=== PATIENT | female | born 1990 | race Caucasian/White ===

== ENCOUNTER 2019-07-25 01:31 | Emergency (ER) | payer OTHER ==
[~2019-07-25] VITALS: Ht 149.9 cm; Wt 136.0 kg
[2019-07-25 02:11] LABS: HEMATOCRIT. 40.5 % (36.0-48.0); HEMOGLOBIN. 13.9 g/dL (12.0-16.0); MEAN CORPUSCULAR HEMOGLOBIN 31.4 pg (28.0-32.0); MEAN CORPUSCULAR VOLUME 91.6 fL (81.0-99.0); MEAN PLATELET VOLUME 8.6 fl (7.4-10.4); PLATELET 345 x1000/uL (130-400); RED BLOOD CELL COUNT 4.42 mill/uL (4.2-5.4); RED CELL DISTRIBUTION WIDTH 14.4 % (11.6-14.6)
[2019-07-25 02:13] LABS: CHLORIDE 103 mEq/L (98-107)
[2019-07-25] MEDS ORDERED: ACETAMINOPHEN 325MG TABLET PO ONE (02:15)
[2019-07-25 02:38] LABS: B-HCG QUANTITATIVE 4278 mIU/mL (<3)
[2019-07-25 02:42] LABS: PLATELET ESTIMATE NORMAL
[2019-07-25 03:12] LABS: CLARITY URINE CLOUDY (CLEAR); COLOR URINE RED (YELLOW); KETONES URINE NEGATIVE (NEGATIVE); LEUKOCYTE ESTERASE URINE 1+ (NEGATIVE); NITRITE URINE NEGATIVE (NEGATIVE); OCCULT BLOOD URINE 3+ (NEGATIVE); PH URINE 5.5 (4.5-8.0); PROTEIN URINE 2+ (NEGATIVE); SPECIFIC GRAVITY URINE 1.021 (1.005-1.030); UROBILINOGEN URINE 0.2 E.U./dL (0.2-1.0)
[2019-07-25 03:30] VITALS: BP 121/52
== END 2019-07-25 04:30 | disposition home or self-care (01) ==
LOC: ER 01:31
DX: O03.9 Complete or unspecified spontaneous abortion without complication (principal); O26.899 Other specified pregnancy related conditions, unspecified trimester; E66.01 Morbid (severe) obesity due to excess calories; Z98.890 Other specified postprocedural states; Z3A.00 Weeks of gestation of pregnancy not specified
CPT/HCPCS: 36415; 76801; 80053; 81003; 84702; 85025; 86850; 86900; 99284

== ENCOUNTER 2019-07-27 10:32 | Emergency (ER) | payer OTHER ==
[~2019-07-27] VITALS: Ht 160 cm; Wt 126.0 kg
[2019-07-27] MEDS ORDERED: BACITRACIN ZINC OINT UDPKT TOP ONE (13:15)
[2019-07-27 15:15] VITALS: BP 163/94
== END 2019-07-27 15:16 | disposition home or self-care (01) ==
LOC: ER 10:32
DX: O03.9 Complete or unspecified spontaneous abortion without complication (principal); Z98.890 Other specified postprocedural states
CPT/HCPCS: 36415; 76830; 76856; 84702; 99284

== ENCOUNTER 2020-04-17 18:46 | Emergency (ER) | payer OTHER ==
[~2020-04-17] VITALS: Ht 154.9 cm; Wt 131.0 kg
[2020-04-17] MEDS ORDERED: ONDANSETRON HCL 4MG/2ML INJ IV ONE (20:45)
[2020-04-17] MEDS ORDERED: SODIUM CHLORIDE 0.9% 1,000 ML IV ONE (20:45)
[2020-04-17 20:50] LABS: CLARITY URINE CLEAR (CLEAR); COLOR URINE YELLOW (YELLOW); KETONES URINE 1+ (NEGATIVE); LEUKOCYTE ESTERASE URINE NEGATIVE (NEGATIVE); NITRITE URINE NEGATIVE (NEGATIVE); OCCULT BLOOD URINE NEGATIVE (NEGATIVE); PH URINE 6.5 (4.5-8.0); PROTEIN URINE NEGATIVE (NEGATIVE); UROBILINOGEN URINE 0.2 E.U./dL (0.2-1.0)
[2020-04-17 20:58] LABS: EOSINOPHILS % 1.3 % (0.0-5.0); HEMATOCRIT. 41.8 % (36.0-48.0); HEMOGLOBIN. 13.8 g/dL (12.0-16.0); LYMPHOCYTES % 27.8 % (20.0-50.0); MEAN CORPUSCULAR HEMOGLOBIN 30.2 pg (28.0-32.0); MEAN CORPUSCULAR VOLUME 91.6 fL (81.0-99.0); MEAN PLATELET VOLUME 8.6 fl (7.4-10.4); MONOCYTES % 7.1 % (2.0-8.0); NEUTROPHILS % 62.8 % (40.0-76.0); PLATELET 350 x1000/uL (130-400); RED BLOOD CELL COUNT 4.56 mill/uL (4.2-5.4)
[2020-04-17 21:04] LABS: CHLORIDE 103 mEq/L (98-107)
[2020-04-17 21:28] LABS: B-HCG QUANTITATIVE 22395 mIU/mL (<3)
[2020-04-17 22:51] VITALS: BP 144/80
== END 2020-04-17 22:53 | disposition home or self-care (01) ==
LOC: ER 18:46
DX: O20.0 Threatened abortion (principal); O21.0 Mild hyperemesis gravidarum; Z3A.01 Less than 8 weeks gestation of pregnancy; Z98.890 Other specified postprocedural states
CPT/HCPCS: 36415; 76801; 76817; 80053; 81003; 83690; 84702; 85025; 86850; 86900; 86901; 93005; 96361; 96374; 99285; J2405; J7030

== ENCOUNTER 2020-07-24 12:48 | Observation (INO) | payer OTHER | END 2020-07-24 15:45 | disposition home or self-care (01) | LOC: 8EST NSY 12:48 → 8 EST A/PP 13:50 | PROVIDERS: ADMIT Obstetrics & Gynecology; ATTEND Obstetrics & Gynecology | DX: Z34.92 Encounter for supervision of normal pregnancy, unspecified, second trimester (principal); Z3A.21 21 weeks gestation of pregnancy | CPT/HCPCS: 59025; 76805; 99281; G0378 ==

== ENCOUNTER 2020-08-18 17:37 | Observation (INO) | payer MEDICAID, OTHER ==
[~2020-08-18] VITALS: Ht 162.6 cm; Wt 123.0 kg
[2020-08-18] MEDS ORDERED: DEXAMETHASONE 10 MG/ML VIAL IV ONE (18:15)
[2020-08-18] MEDS ORDERED: KETOROLAC 60MG/2ML VIAL IM ONE (18:15)
[2020-08-18] MEDS ORDERED: LIDOCAINE 5% PATCH TOP SCH (18:15)
[2020-08-18] MEDS ORDERED: ACETAMINOPHEN 325MG TABLET PO ONE ×2 (18:15→19:00)
[2020-08-18 19:34] LABS: BASOPHILS % 0.4 % (0.0-2.0); EOSINOPHILS % 0.6 % (0.0-5.0); HEMATOCRIT. 37.3 % (36.0-48.0); HEMOGLOBIN. 12.8 g/dL (12.0-16.0); LYMPHOCYTES % 17.8 % (20.0-50.0); MEAN CORPUSCULAR HEMOGLOBIN 30.8 pg (28.0-32.0); MEAN CORPUSCULAR VOLUME 89.9 fL (81.0-99.0); MEAN PLATELET VOLUME 8.5 fl (7.4-10.4); MONOCYTES % 7.1 % (2.0-8.0); NEUTROPHILS % 74.1 % (40.0-76.0); PLATELET 359 x1000/uL (130-400); RED BLOOD CELL COUNT 4.15 mill/uL (4.2-5.4); RED CELL DISTRIBUTION WIDTH 14.8 % (11.6-14.6)
[2020-08-18 19:40] LABS: CHLORIDE 110 mEq/L (98-107)
[2020-08-18] MEDS ORDERED: POTASSIUM CHLORIDE 20MEQ TABLET SR PO SCH (20:00)
[2020-08-18 20:04] LABS: B-HCG QUANTITATIVE 10356 mIU/mL (<3)
[2020-08-18] MEDS ORDERED: ACET-2708 MT (21:30)
[2020-08-18] MEDS ORDERED: LIDO700A15 TP (21:30)
[2020-08-18 22:15] VITALS: BP 142/70
[2020-08-18] MEDS ORDERED: ONDA4TAB5 PO (23:02)
[2020-08-18] MEDS ORDERED: PREN1TAB78 PO (23:02)
[2020-08-18] MEDS ORDERED: LABETALOL (23:02)
== END 2020-08-18 23:45 | disposition home or self-care (01) ==
LOC: ER 17:37 → 8 EST LDRP 22:21
PROVIDERS: ADMIT Obstetrics & Gynecology; ATTEND Obstetrics & Gynecology
DX: O99.891 Other specified diseases and conditions complicating pregnancy (principal); M54.5 Low back pain; O16.2 Unspecified maternal hypertension, second trimester; O99.212 Obesity complicating pregnancy, second trimester; Z3A.24 24 weeks gestation of pregnancy
CPT/HCPCS: 36415; 59025; 76805; 80053; 84702; 85025; 86850; 86900; 86901; 99284; G0378; J1100; J1885; 99281

== ENCOUNTER 2020-11-10 16:53 | Inpatient (IN) | payer MEDICAID, OTHER ==
[~2020-11-10] VITALS: Ht 149.9 cm; Wt 137.9 kg
[~2020-11-10 16:53] MED LIST: ACET-2708 MT; LABETALOL; LIDO700A15 TP; ONDA4TAB5 PO; PREN1TAB78 PO
[2020-11-10] MEDS ORDERED: NALOXONE HCL 0.4 MG/ML 1ML VIAL IM PRN (18:15)
[2020-11-10] MEDS ORDERED: DEXT 5%/LR + PITOCIN 20UNITS/L 1,000 ML IV SCH (18:15)
[2020-11-10] MEDS ORDERED: LACTATED RINGERS 1,000 ML IV SCH (18:15)
[2020-11-10] MEDS ORDERED: CITRIC ACID/SODIUM CITRATE SOLN 30ML UDC PO NR (18:45)
[2020-11-10 19:20] LABS: BASOPHILS % 0.2 % (0.0-2.0); EOSINOPHILS % 0.9 % (0.0-5.0); HEMATOCRIT. 39.1 % (36.0-48.0); LYMPHOCYTES % 23.4 % (20.0-50.0); MEAN CORPUSCULAR HEMOGLOBIN 30.4 pg (28.0-32.0); MEAN CORPUSCULAR VOLUME 91.8 fL (81.0-99.0); MEAN PLATELET VOLUME 8.8 fl (7.4-10.4); MONOCYTES % 8.5 % (2.0-8.0); PLATELET 389 x1000/uL (130-400); RED BLOOD CELL COUNT 4.26 mill/uL (4.2-5.4); RED CELL DISTRIBUTION WIDTH 14.7 % (11.6-14.6)
[2020-11-10 19:24] LABS: CHLORIDE 106 mEq/L (98-107)
[2020-11-10 19:34] LABS: CLARITY URINE CLEAR (CLEAR); COLOR URINE YELLOW (YELLOW); KETONES URINE 2+ (NEGATIVE); LEUKOCYTE ESTERASE URINE NEGATIVE (NEGATIVE); NITRITE URINE NEGATIVE (NEGATIVE); OCCULT BLOOD URINE NEGATIVE (NEGATIVE); PROTEIN URINE TRACE (NEGATIVE); SPECIFIC GRAVITY URINE 1.026 (1.005-1.030)
[2020-11-10 19:44] LABS: *AMPHETAMINES SCREEN URINE NEGATIVE (NEGATIVE); *BARBITURATES SCREEN URINE NEGATIVE (NEGATIVE); *BENZODIAZEPINES SCREEN URINE NEGATIVE (NEGATIVE); *COCAINE SCREEN URINE NEGATIVE (NEGATIVE); METHADONE URINE SCREEN NEGATIVE (NEGATIVE); OPIATES URINE SCREEN NEGATIVE (NEGATIVE)
[2020-11-10 19:45] LABS: PHENCYCLIDINE URINE SCREEN NEGATIVE (NEGATIVE)
[2020-11-10] MEDS ORDERED: FENTANYL CITRATE/PF 50MCG/ML 2ML VIAL ONE (19:45)
[2020-11-10] MEDS ORDERED: PHENYLEPHRINE HCL 10 MG/ML 1ML (IV VIAL) IV ONE (19:45)
[2020-11-10] MEDS ORDERED: OXYTOCIN 10 UNITS/ML 1ML ONE (19:46)
[2020-11-10] MEDS ORDERED: EPHEDRINE SULFATE 50MG/ML VIAL ONE (19:46)
[2020-11-10] MEDS ORDERED: CEFAZOLIN SODIUM 1000MG/VIAL ONE (19:46)
[2020-11-10] MEDS ORDERED: ONDANSETRON HCL 4MG/2ML INJ ONE (19:46)
[2020-11-10] MEDS ORDERED: MORPHINE SULFATE/PF 1MG/ML 10ML AMP ONE (19:46)
[2020-11-10] MEDS ORDERED: SODIUM CHLORIDE 0.9% 10ML VIAL ONE (19:48)
[2020-11-10 19:51] LABS: CANNABINOID URINE SCREEN PRESUMTIVE POSITIVE (NEGATIVE)
[2020-11-10 20:05] LABS: HEPATITIS B SURFACE ANTIGEN NEGATIVE
[2020-11-10 20:08] LABS: PARTIAL THROMBOPLASTIN TIME 25.3 sec (23.4-31.0); PROTHROMBIN TIME 10.6 sec (9.6-11.0)
[2020-11-10] MEDS ORDERED: DIPHENHYDRAMINE 50MG/ML VIAL ONE (23:55)
[2020-11-10] MEDS ORDERED: KETOROLAC 60MG/2ML VIAL IM ONE (23:55)
[2020-11-11] VITALS (8 sets, daily range): BP systolic 109–145; BP diastolic 56–93
[2020-11-11] MEDS ORDERED: ACETAMINOPHEN WITH CODEINE 300/30MG TABLET PO PRN (00:15)
[2020-11-11] MEDS ORDERED: BISACODYL 10MG SUPP PR PRN (00:15)
[2020-11-11] MEDS ORDERED: BUTORPHANOL TARTRATE 2 MG/ML VIAL IV PRN (00:15)
[2020-11-11] MEDS ORDERED: DIPHENHYDRAMINE 25MG CAPSULE PO PRN (00:15)
[2020-11-11] MEDS ORDERED: KETOROLAC 30MG/ML VIAL IV SCH (00:15)
[2020-11-11] MEDS ORDERED: BENZOCAINE/LANOLIN/ALOE VERA SPRAY TOP PRN (00:15)
[2020-11-11] MEDS ORDERED: HEMORRHOIDAL SUPP PR PRN (00:15)
[2020-11-11] MEDS ORDERED: NALOXONE HCL 0.4 MG/ML 1ML VIAL IV PRN (00:15)
[2020-11-11] MEDS ORDERED: DIPHENHYDRAMINE 50MG/ML VIAL IV PRN (00:15)
[2020-11-11] MEDS ORDERED: IBUPROFEN 400MG TABLET PO PRN (00:15)
[2020-11-11] MEDS ORDERED: GLYCERIN/WITCH HAZEL LEAF MEDICATED PAD TOP PRN (00:15)
[2020-11-11] MEDS ORDERED: DEXT 5%/LR + PITOCIN 20UNITS/L 1,000 ML IV SCH (02:30)
[2020-11-11 07:17] LABS: BASOPHILS % 0.3 % (0.0-2.0); EOSINOPHILS % 0.3 % (0.0-5.0); HEMATOCRIT. 37.4 % (36.0-48.0); HEMOGLOBIN. 12.4 g/dL (12.0-16.0); MEAN CORPUSCULAR HEMOGLOBIN 30.7 pg (28.0-32.0); MEAN CORPUSCULAR VOLUME 92.5 fL (81.0-99.0); MEAN PLATELET VOLUME 8.7 fl (7.4-10.4); MONOCYTES % 7.8 % (2.0-8.0); NEUTROPHILS % 75.6 % (40.0-76.0); PLATELET 324 x1000/uL (130-400); RED BLOOD CELL COUNT 4.04 mill/uL (4.2-5.4); RED CELL DISTRIBUTION WIDTH 15.1 % (11.6-14.6)
[2020-11-11] MEDS ORDERED: MAGNESIUM/ALUMINUM HYDROXIDE/SIMETHICONE 30ML UDC PO SCH (07:30)
[2020-11-11] MEDS ORDERED: TETANUS, DIPHTHERIA, PERTUSSIS VAC/PF 0.5ML (>7YR OLD) IM ONE (09:00)
[2020-11-11] MEDS ORDERED: PRENATAL VIT/FE FUMARATE/FA TABLET PO SCH (09:00)
[2020-11-11] MEDS ORDERED: ONDANSETRON HCL 4MG/2ML INJ IV PRN (10:00)
[2020-11-11] MEDS: SIMETHICONE 80MG TABLET CHEW PO SCH ×2 (15:55→21:39)
[2020-11-11] MEDS: IBUPROFEN 800MG TABLET PO PRN (15:55)
[2020-11-11] MEDS ORDERED: DOCUSATE SODIUM 100MG CAPSULE PO SCH (21:00)
[2020-11-11] MEDS ORDERED: LABETALOL HCL 200MG TABLET PO SCH (22:00)
[2020-11-12 00:05] VITALS: BP 116/70
[2020-11-12] MEDS: IBUPROFEN 800MG TABLET PO PRN ×2 (00:22→12:11)
[2020-11-12 04:00] VITALS: BP 122/79
[2020-11-12 05:30] VITALS: BP 125/54
[2020-11-12] MEDS ORDERED: IBUP-2030 PO (06:04)
[2020-11-12] MEDS ORDERED: FERROUS SULFATE 325MG TABLET PO SCH (07:30)
[2020-11-12 08:00] VITALS: BP 96/49
[2020-11-12] MEDS: SIMETHICONE 80MG TABLET CHEW PO SCH (12:12)
[2020-11-12 16:12] VITALS: BP 136/66
[2020-11-22 04:09] LABS: CANNABINOID CONFIRMATION URINE Positive (.)
== END 2020-11-12 19:25 | disposition home or self-care (01) | DRG 540 ==
LOC: 8 EST LDRP 16:53 → OBSVTOIN 16:53 → 8EST 11-11 02:20
PROVIDERS: ADMIT Obstetrics & Gynecology; ATTEND Obstetrics & Gynecology
PROC: 10D00Z1 Extraction of Products of Conception, Low, Open Approach (ICD-10-PCS; principal; 2020-11-11)
DX: O34.211 Maternal care for low transverse scar from previous cesarean delivery (principal); O10.92 Unspecified pre-existing hypertension complicating childbirth; Z3A.37 37 weeks gestation of pregnancy; Z37.0 Single live birth; Z20.822 Contact with and (suspected) exposure to COVID-19
CPT/HCPCS: 36415; 80053; 80305; 80349; 80359; 81003; 84550; 85025; 85384; 86592; 86703; 86762; 86850; 86900; 87340; 87426; 88307; 90715; C1726; J0690; J1200; J1885; J2274; J2370; J2405; J2590; J3010; J3490; J7120